=== PATIENT | male | born 1995 | race Caucasian/White ===

== ENCOUNTER 2017-07-23 18:53 | Emergency (ER) | payer SELFPAY ==
[~2017-07-23] VITALS: Ht 188 cm; Wt 65.9 kg
[2017-07-23 18:59] VITALS: BP 120/70; PULSE 90; TEMP 98.7
[2017-07-23] MEDS ORDERED: NORCO 325 MG-51 TAB PO (19:59)
[2017-07-23] MEDS ORDERED: FLEXERIL 1010 MG/TAB PO (19:59)
== END 2017-07-23 20:05 | disposition home or self-care (01) ==
LOC: COL.ER 18:53
DX: M54.5 Low back pain (principal); F17.210 Nicotine dependence, cigarettes, uncomplicated

== ENCOUNTER 2018-01-27 21:00 | Emergency (ER) | payer OTHER ==
[~2018-01-27] VITALS: Ht 188 cm; Wt 73.2 kg
[~2018-01-27 21:00] MED LIST: FLEXERIL 1010 MG/TAB PO; NORCO 325 MG-51 TAB PO
[2018-01-27 21:04] VITALS: BP 138/84; TEMP 100
[2018-01-27 22:26] VITALS: PULSE 85
== END 2018-01-27 22:33 | disposition home or self-care (01) ==
LOC: COL.ER 21:00
DX: J02.0 Streptococcal pharyngitis (principal); F12.90 Cannabis use, unspecified, uncomplicated; F17.210 Nicotine dependence, cigarettes, uncomplicated
CPT/HCPCS: J0561